=== PATIENT | male | born 1955 | race Caucasian/White ===

== ENCOUNTER → 2020-10-28 13:30 | Outpatient (CLI) | payer BC, SELFPAY ==
--- NOTE | ~2020-10-28 | XR_ITS ---
XR finger 2nd LT min 2V DATE: 10/28/2020 13:57 INDICATION: Second digit injury TECHNIQUE: 4 views COMPARISON: None FINDINGS: There is a probable recent linear minimally displaced fracture at the medial corner of the base of the distal phalanx of the second digit. There is osteoarthritic change at the second and third metacarpophalangeal joints. There is severe os teoarthritic change with prominent dorsal spurring at the distal interphalangeal joint. 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
== END ==
PROVIDERS: PCP Family Medicine Adolescent Medicine; Visit Provider Physician Assistant
DX: S69.92XA Unspecified injury of left wrist, hand and finger(s), initial encounter (principal); X58.XXXA Exposure to other specified factors, initial encounter; M19.042 Primary osteoarthritis, left hand
CPT/HCPCS: 73140

== ENCOUNTER → 2020-11-10 10:41 | Outpatient (CLI) | payer BC, SELFPAY ==
--- NOTE | ~2020-11-10 | XR_ITS ---
EXAMINATION: XR wrist LT min 3V EXAM DATE: 11/10/2020 10:59 INDICATION: Nodule medial wrist, unknown injury . Pt feels a small bump on the medial aspect of his w rist beside the ulna, it has been there for 30 yrs but has recently started bothering the pt because he's been using a keyboard for work, no change in the bump and no known foreign object entry TECHNIQUE: Left wrist frontal, frontal with ulnar deviation, oblique and lateral projections obtained and reviewed. There is no prior study for comparison. FINDINGS: Left wrist scapholunate joint space is maintained. There is 3 mm metallic density projecti ng adjacent to the ulna, probably small foreign body. There is mild polyarticular primary osteoarthri tis. There are no bony erosions identified. There are no acute fractures identified. IMPRESSION: 1. Small metallic foreign body probably correlating to location of palpable abnormality 2. Mild left wrist polyarticular osteoarthritis. Reviewed, dictated and finalized at location A. IMPRESSION: 1. Small metallic foreign body probably correlating to location of palpable ab normality 2. Mild left wrist polyarticular osteoarthritis.
== END ==
PROVIDERS: PCP Family Medicine Adolescent Medicine; Visit Provider Physician Assistant
DX: M19.032 Primary osteoarthritis, left wrist (principal)
CPT/HCPCS: 73110

== ENCOUNTER → 2022-03-27 06:54 | Outpatient (CLI) | payer BC, SELFPAY ==
--- NOTE | ~2022-03-27 | MR_ITS ---
MRI of the cervical spine Clinical History: Left shoulder weakness Technique: Axial T2-weighted and gradient images, and sagittal T1-weighted, T2-weighted, and STIR renetta ges were acquired. Findings: There is no fracture or subluxation of the cervical spine. Vertebral bodies maintain normal height and alignment. No suspicious bone marrow signal reality seen. There are mild reactive marrow signal changes due to underlying degenerative disc disease. At C2-C3, there is no disc bulge or herniation. There is no spinal canal stenosis or cord compression . There is right facet joint hypertrophy with right neural foraminal narrowing. Left neural foramen p reserved. At C3-C4, there is disc osteophyte complex which results in mild canal stenosis and mild ventral cord flattening, especially on the right side. There is advanced bilateral neural foraminal narrowing. At C4-C5, there is small disc osteophyte complex, which results in mild canal stenosis, but no huey cord compression. There is advanced bilateral neural foraminal narrowing. At C5-C6, disc ossify complex results in mild canal stenosis and probable minimal flattening the vent ral cord. There is severe bilateral neural foraminal narrowing. At C6-C7, there is mild disc osteophyte complex. There is minimal canal stenosis without huey cord c ompression. There is bilateral neural foraminal narrowing, right worse than left. No abnormal signal seen in the spinal cord. Paravertebral soft tissues are unremarkable. Impression: Moderate degenerative spondylosis, as detailed above. There is mild ventral cord flattening at C3-C4, with multilevel mild canal stenosis. There is multilevel advanced neural foraminal narrowing, as det sarah above. Reviewed, dictated and finalized at [facility]. F DEVELOPMENT MANAGER Impression: Moderate degenerative spondylosis, as detailed above. There is mild ventral cor d flattening at C3-C4, with multilevel mild canal stenosis. There is multilevel advanced neural foraminal narrowing, as detailed above.
== END ==
PROVIDERS: PCP Family Medicine Adolescent Medicine; Visit Provider Family Medicine Adolescent Medicine
DX: M62.81 Muscle weakness (generalized) (principal); M47.812 Spondylosis without myelopathy or radiculopathy, cervical region; M48.02 Spinal stenosis, cervical region
CPT/HCPCS: 72141

== ENCOUNTER 2022-07-11 08:22 | Outpatient (CLI) | payer BC, SELFPAY ==
--- NOTE | 2022-07-11 08:37 | ECG_ITS ---
Measurements Intervals Converse Rate: 62 P: 40 CT: 136 QRS: -57 QRSD: 131 T: -6 QT: 409 QTc: 418 Interpretive Statements SINUS RHYTHM LEFT AXIS DEVIATION RIGHT BUNDLE BRANCH BLOCK CONSIDER INFERIOR INFARCT, AGE INDETERMINATE BASELINE ARTIFACT- I, III, AVR, AVL, AVF, V4-V6 ABNORMAL ECG NO PREVIOUS ECG AVAILABLE FOR COMPARISON Electronically Signed On 07-11-2022 9:03:36 CDT by Robert Arshad D.O.
[2022-07-11 09:49] LABS: Hematocrit 47.8 % (42.0-52.0); Hemoglobin 15.8 g/dL (14.0-18.0)
== END 2022-07-11 08:23 | disposition home or self-care (01) ==
LOC: ANHSURGERY 08:28
PROVIDERS: Anesthesiology; PCP Family Medicine Adolescent Medicine; Visit Provider Neurological Surgery
DX: M54.12 Radiculopathy, cervical region (principal); M62.81 Muscle weakness (generalized); Z01.818 Encounter for other preprocedural examination; I45.10 Unspecified right bundle-branch block
CPT/HCPCS: 36415; 85014; 85018; 86850; 86900; 86901; 93005

== ENCOUNTER → 2022-07-11 13:43 | Outpatient (CLI) | payer BC, SELFPAY ==
--- NOTE | ~2022-07-11 | XR_ITS ---
XR chest 2V INDICATION: Chest congestion TECHNIQUE: 2 view chest. FINDINGS: No prior studies for comparison. There is mild bilateral interstitial prominence and peribronchial cuffing. There is no focal consoli dation, pleural effusion, or pneumothorax. The cardiomediastinal silhouette is normal. IMPRESSION: 1. Findings most consistent with bronchiolitis versus an atypical or viral pneumonia. Reviewed, dictated and finalized at location B. IMPRESSION: 1. Findings most consistent with bronchiolitis versus an atypical or viral pne [facility].
== END ==
PROVIDERS: PCP Family Medicine Adolescent Medicine; Visit Provider Family Medicine Adolescent Medicine
DX: Z77.090 Contact with and (suspected) exposure to asbestos (principal)
CPT/HCPCS: 71046

== ENCOUNTER 2022-08-10 10:02 | Outpatient (CLI) | payer BC, SELFPAY ==
--- NOTE | 2022-08-10 10:26 | EST_ITS ---
Patient Info Name: Berhane Burgos Age: 66 years : 1955 Gender: Male Ht: 68 in Wt: 175 lbs BSA: 1.97 m2 HR: 53 bpm BP: 124 / 83 mmHg Heart Rhythm: Bradycardia Technical Quality: Good Exam Date: 08/10/2022 10:31 AM Exam Location: [facility] Pulmonary Patient Status: Outpatient Admit Date: 08/10/2022 Staff Ordering Physician: Dyllan Yoder MD Dental Office Receptionist: Cha Gipson RDCS Attending Provider: scott lee Referring Physician: Paresh YODER; Exam Type: CA stress echo Study Info Indications - preop Treadmill exercise stress echocardiogram is performed. Summary 1. 1. Negative Paddy exercise stress test for ischemic ST changes by ECG criteria. 2. 2. Good functional capacity, achieving 10 METs of workload. 3. 3. Appropriate HR response to exercise. 4. 4. Appropriate HR recovery at 1 minute post exercise. 5. 5. Negative stress echocardiogram for ischemia by wall motion analysis. 6. 6. Patient informed of the above results. Stress Echo Findings Left Ventricle Appropriate increase in LV endocardial thickening with systole. Appropriate augmentation of contractility with systole. No wall motion abnormality. Left Ventricle Normal LV systolic function, no wall motion abnormality. Protocol: Paddy Stress ECG Details Stage: REST Duration (min): 1 min : 3 sec Speed (mph): 0.0 Grade (%): 0 HR (bpm): 56 SBP (mmHg): 124 DBP (mmHg): 83 METS: --- Stage: REST Duration (min): 15 min : 3 sec Speed (mph): 0.0 Grade (%): 0 HR (bpm): 59 SBP (mmHg): 124 DBP (mmHg): 83 METS: --- Stage: STAGE 1 Duration (min): 1 min : 0 sec Speed (mph): 1.7 Grade (%): 10 HR (bpm): 81 SBP (mmHg): 124 DBP (mmHg): 83 METS: --- Stage: STAGE 1 Duration (min): 2 min : 0 sec Speed (mph): 1.7 Grade (%): 10 HR (bpm): 87 SBP (mmHg): 124 DBP (mmHg): 83 METS: --- Stage: STAGE 1 Duration (min): 3 min : 0 sec Speed (mph): 1.7 Grade (%): 10 HR (bpm): 90 SBP (mmHg): 162 DBP (mmHg): 106 METS: --- Stage: STAGE 2 Duration (min): 1 min : 0 sec Speed (mph): 2.5 Grade (%): 12 HR (bpm): 98 SBP (mmHg): 164 DBP (mmHg): 105 METS: --- Stage: STAGE 2 Duration (min): 2 min : 0 sec Speed (mph): 2.5 Grade (%): 12 HR (bpm): 101 SBP (mmHg): 168 DBP (mmHg): 101 METS: --- Stage: STAGE 2 Duration (min): 3 min : 0 sec Speed (mph): 2.5 Grade (%): 12 HR (bpm): 111 SBP (mmHg): 168 DBP (mmHg): 101 METS: --- Stage: STAGE 3 Duration (min): 1 min : 0 sec Speed (mph): 3.4 Grade (%): 14 HR (bpm): 124 SBP (mmHg): 201 DBP (mmHg): 99 METS: --- Stage: STAGE 3 Duration (min): 2 min : 0 sec Speed (mph): 3.4 Grade (%): 14 HR (bpm): 134 SBP (mmHg): 201 DBP (mmHg): 99 METS: --- Stage: STAGE 3 Duration (min): 2 min : 2 sec Speed (mph): 0.0 Grade (%): 0 HR (bpm): 135 SBP (mmHg): 201 DBP (mmHg): 99 METS: --- Stage: RECOVERY Duration (min): 0 mi
== END 2022-08-10 10:03 | disposition home or self-care (01) ==
PROVIDERS: PCP Family Medicine Adolescent Medicine; Visit Provider Family Medicine Adolescent Medicine
DX: R94.31 Abnormal electrocardiogram [ECG] [EKG] (principal); M54.12 Radiculopathy, cervical region
CPT/HCPCS: 93351